=== PATIENT | female | born 1940 | race Caucasian/White ===

== ENCOUNTER 2020-06-08 22:22 | Emergency (ER) | payer MEDICARE, OTHER ==
[2020-06-08] MEDS ORDERED: Ketorolac 30 MG/ML SDV IM ONE (23:01)
--- NOTE | 2020-06-08 23:07 | EDM.PDOC ---
ED HPI GENERAL MEDICAL PROBLEM - General Chief Complaint: Lower Extremity Injury/Pain Stated Complaint: MEDICAL VIA [facility] Time Seen by Provider: 06/08/20 22:45 Source of Information: Reports: Patient, EMS, Family, RN History Limitations: Reports: Other (no old records) - History of Present Illness INITIAL COMMENTS - FREE TEXT/NARRATIVE: 79 yo female is here via EMS after onset of bilateral leg pain above the knees that came on while sweeping. Denies injury. No fever. No hx of the same. Here with . They have a camper in the [place] area. EMS gave IM Fentanyl with partial relief. PMH mainly positive for HTN, is on one med for this that she does not know the name of, she has not missed any doses. 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 (see below) (EMS gave IM Fentanyl) Bilateral Upper Leg Pain Score (Numeric/FACES): 8 - Related Data Allergies Allergy/AdvReac Type Severity Reaction Status Date / Time No Known Allergies Allergy Verified 06/08/20 22:26 Home Meds: Home Meds Blood Pressure Pill 0 mg PO DAILY 06/08/20 [History] Etodolac 400 mg PO Q12H PRN #14 tablet 06/09/20 [Rx] Past Medical History HEENT History: Reports: None Cardiovascular History: Reports: Hypertension Respiratory History: Reports: None Gastrointestinal History: Reports: None Genitourinary History: Reports: None PHOTO FINISHER History: Reports: None Musculoskeletal History: Reports: Arthritis Neurological History: Reports: None Psychiatric History: Reports: None Endocrine/Metabolic History: Reports: None Hematologic History: Reports: None Immunologic History: Reports: None Oncologic (Cancer) History: Reports: None Dermatologic History: Reports: None - Infectious Disease History Infectious Disease History: Reports: Chicken Pox, Mumps, Shingles - Past Surgical History HEENT Surgical History: Reports: None Cardiovascular Surgical History: Reports: None Social & Family History - Tobacco Use Smoking Status *Q: Never Smoker - Caffeine Use Caffeine Use: Reports: Coffee - Recreational Drug Use Recreational Drug Use: No Review of Systems - Review of Systems Review Of Systems: See Below Constitutional: Reports: No Symptoms Eyes: Reports: No Symptoms Ears: Reports: No Symptoms Nose: Reports: No Symptoms Mouth/Throat: Reports: No Symptoms Respiratory: Reports: No Symptoms Cardiovascular: Reports: No Symptoms GI/Abdominal: Reports: No Symptoms Genitourinary: Reports: No Symptoms Musculoskeletal: Reports: Other (bilateral thigh pain, posteriorly worse than anteriorly) Skin: Reports: No Symptoms Neurological: Reports: No Symptoms ED EXAM, GENERAL - Physical Exam Exam: See Below Exam Limited By: No Limitations General Appearance: Alert, WD/WN, No Apparent Distress Eye Exam: Bilateral Eye: Normal Inspection Ears: Normal External Exam, Normal Canal, Hearing Grossly Normal Ear Exam: Bilateral Ear: Auricle Normal, Canal Normal Nose: Normal Inspection, No Blood Throat/Mouth: Normal Inspection, Normal Lips, Normal Oropharynx, Normal Voice Head: Atraumatic, Normocephalic Neck: Normal Inspection Respiratory/Chest: No Respiratory Distress, Lungs Clear, Normal Breath Sounds, No Accessory Muscle Use Cardiovascular: Regular Rate, Rhythm, No Edema GI/Abdominal: Normal Bowel Sounds, Soft, Non-Tender, No Distention Back Exam: Normal Inspection, Other (bilateral SI joint pain). No: CVA Tenderness (R), CVA Tenderness (L), Paraspinal Tenderness, Vertebral Tenderness Extremities: Normal Inspection, Normal Range of Motion, Non-Tender, No Pedal Edema. No: Pedal Edema, Leg Pain, Limited Range of Motion, Increased Warmth, Mottled, Pallor, Redness Neurological: Alert, Oriented, CN II-XII Intact, Normal Cognition, No Motor/Sensory Deficits Psychiatric: Normal Affect, Normal Mood Skin Exam: Warm, Dry, Intact, Normal Color, No Rash Course - Vital Signs Last Recorded V/S: Last Vital Signs Temp 35.2 C L 06/08/20 22:28 Pulse 78 06/08/20 23:12 Resp 16 06/08/20 23:12 BP 191/94 H 06/08/20 23:12 Pulse Ox 87 L 06/08/20 22:50 - Orders/Labs/Meds Orders: Active Orders 24 hr Category Date Time Status Lumbar Spine 2 or 3V [CR] Stat Exams 06/09/20 00:03 Taken Pelvis 1V or 2V [CR] Stat Exams 06/09/20 00:04 Taken Labs: Laboratory Tests 06/08/20 06/08/20 06/09/20 Range/Units 23:14 23:14 00:10 WBC 12.7 H (4.5-11.0) K/uL RBC 4.20 (3.30-5.50) M/uL Hgb 13.6 (12.0-15.0) g/dL Hct 41.3 (36.0-48.0) % MCV 98 (80-98) fL MCH 32 H (27-31) pg MCHC 33 (32-36) % Plt Count 189 (150-400) K/uL Sodium 138 L (140-148) mmol/L Potassium 5.0 (3.6-5.2) mmol/L Chloride 102 (100-108) mmol/L Carbon Dioxide 23 (21-32) mmol/L Anion Gap 18.0 H (5.0-14.0) mmol/L BUN 12 (7-18) mg/dL Creatinine 0.8 (0.6-1.0) mg/dL Est Cr Clr Drug Dosing 49.39 mL/min Estimated GFR (MDRD) > 60 (>60) Glucose 129 H (74-106) mg/dL Calcium 9.3 (8.5-10.1) mg/dL C-Reactive Protein 0.07 (0.0-0.3) mg/dL Urine Color Yellow (YELLOW) Urine Appearance Clear (CLEAR) Urine pH 6.5 (5.0-8.0) Ur Specific [place] 1.025 (1.008-1.030) Urine Protein Negative (NEGATIVE) mg/dL Urine Glucose (UA) Negative (NEGATIVE) mg/dL Urine Ketones 15 H (NEGATIVE) mg/dL Urine Occult Blood Negative (NEGATIVE) Urine Nitrite Negative (NEGATIVE) Urine Bilirubin Negative (NEGATIVE) Urine Urobilinogen 0.2 (0.2-1.0) EU/dL Ur Leukocyte Esterase Negative (NEGATIVE) Urine RBC 0-5 (0-5) Urine WBC 0-5 (0-5) Ur Epithelial Cells Few Amorphous Sediment Not seen Urine Bacteria Rare Urine Mucus Not seen Meds: Medications Discontinued Medications Generic Name Dose Route Start Last Admin Trade Name Freq PRN Reason Stop Dose Admin Ketorolac Tromethamine 30 mg 06/08/20 23:01 06/08/20 23:09 Toradol IM 06/08/20 23:02 30 mg ONETIME ONE Administration - Radiology Interpretation Free Text/Narrative:: Sacrum X-ray- lumbar spine- - Re-Assessments/Exams Free Text/Narrative Re-Assessment/Exam: 06/09/20 00:43 Did well with a walker after the Toradol. Departure - Departure Time of Disposition: 00:50 Disposition: Home, Self-Care 01 Condition: Fair Clinical Impression: SI (sacroiliac) pain HTN (hypertension) Qualifiers: Hypertension type: essential hypertension Qualified Code(s): I10 - Essential (primary) hypertension - Discharge Information *PRESCRIPTION DRUG MONITORING PROGRAM REVIEWED*: No *COPY OF PRESCRIPTION DRUG MONITORING REPORT IN PATIENT [place]: No Instructions: Sacroiliac Joint Dysfunction Referrals: PCP,None [Primary Care Provider] - Forms: ED Department Discharge Additional Instructions: Take either Etodolac every 12 OR ibuprofen 400 mg every 6 hrs with food for pain relief. Add acetaminophen up to 1000 mg every 6 hrs for added relief. Recheck in the clinic alirio as your BP is too high. Also, if your pain persists you may need either physical therapy and/or an injection of cortisone in your sacro-iliac joint(s). If the above medications do not control your pain enough so that you can walk, the substitute Percocet for the acetaminophen and use as directed. Sepsis Event Note (ED) - Evaluation Sepsis Screening Result: No Definite Risk - Focused Exam Vital Signs: Vital Signs Temp Pulse Resp BP Pulse Ox 06/08/20 23:12 78 16 191/94 H 06/08/20 22:50 74 171/83 H 87 L 06/08/20 22:28 35.2 C L 94 16 215/124 H 98 06/08/20 22:24 35.2 C L 94 16 215/124 H 98 - My Orders Last 24 Hours: My Active Orders 06/09/20 00:03 Lumbar Spine 2 or 3V [CR] Stat 06/09/20 00:04 Pelvis 1V or 2V [CR] Stat - Assessment/Plan Last 24 Hours: My Active Orders 06/09/20 00:03 Lumbar Spine 2 or 3V [CR] Stat 06/09/20 00:04 Pelvis 1V or 2V [CR] Stat
--- NOTE | 2020-06-09 09:31 | CR ---
Pelvis 1V or 2V, Lumbar Spine 2 or 3V CLINICAL HISTORY: Pain FINDINGS: There is no fracture or osseous lesion. There is some osteitis pubi. Hips appear intact bilaterally IMPRESSION: No fracture or osseous lesion Pelvis 1V or 2V, Lumbar Spine 2 or 3V CLINICAL HISTORY: Pain sacral area FINDINGS: The vertebral body heights are maintained. There is a transitional lumbosacral segment. There is severe degenerative change at L5-S1. There is a grade 1 anterolisthesis of L5 on S1. 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
== END 2020-06-09 01:06 | disposition home or self-care (01) ==
LOC: JP.ED 22:22
DX: M53.3 Sacrococcygeal disorders, not elsewhere classified (principal); I10 Essential (primary) hypertension
CPT/HCPCS: 36415; 72100; 72170; 80048; 81001; 85027; 86140; 96372; 99284; J1885; 99283